=== PATIENT | male | born 1970 | race Caucasian/White ===

== ENCOUNTER 2023-05-02 17:18 | Emergency (ER) | payer OTHER, SELFPAY ==
[2023-05-02 17:25] VITALS: BP 119/68
--- NOTE | 2023-05-02 19:59 | ED.SKININJ ---
HPI-Injury
General
Chief Complaint: Bite
Source: patient
Exam Limitations: none
Time Seen by Provider: 05/02/23 18:38
Nursing documentation reviewed up to this point in time: agreed with
Travel History
Have you had any contact with someone who has COVID-19?: No
Do you have any symptoms of coronavirus? Fever > 100 degrees, chills, cough, shortness of breath, sore throat, loss of taste or smell, muscle aches, or headache?: No
History of Present Illness-Injury
Is this injury a work related problem?: No
Is pt an associate of [facility]?: No
Initial Injury comments:
Patient to ED for dog bite to right calf. States he was bit by a dog on leash. Incident occurred just [employer]. 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
Past History
Past History
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
ED Past Surgical History: Urological and Other
Social History
Tobacco: Non-smoker
Alcohol: None
Drug: None
Personal: Other
Living: other
Employment: Other
Family History
Family History: Other (Mother with breast and colon cancer, mother was Crohn's disease, father with hypertension)
Review of Systems
Review of Systems
Allergies reviewed?: Yes
All Other Systems: ROS reviewed and negative except as documented in HPI and ROS
Constitutional: Reports no symptoms
Musculoskeletal: Reports no symptoms
Skin: Reports other (Dog bite to right calf)
Neurological: Reports no symptoms
Psychiatric: Reports no symptoms
Skin Exam
Bite
Right Calf:
Type: animal
Skin has: puncture wounds
Surrounding area around bite has: no evidence of erythema
Distal skin color and temperature: normal-warm & good color
Normal distal neurovascular exam: Yes
Phy Exam
General Physical Exam
General Presentation: well appearing and no apparent distress
General age: appears stated age
General Skin: warm and dry
General Habitus: normal
General Mental: alert
Gastrointestinal Exam
Gastrointestinal Exam: normal bowel sounds, non tender, soft and no organomegaly
Musculoskeletal Exam
Musculoskeletal Exam: full ROM and neuro vasc intact
Skin Exam
Skin Exam: normal color, warm/dry and no rash
Psychiatric Exam
Psychiatric Exam: normal mood/affect
Course
Orders/Labs/Results
Orders:
Orders
05/02/23 19:55
Amoxicillin 875 mg/Clav 125 mg [Augmentin 875 mg/125 mg] 1 tablet PO NOW STA
Tetanus/Diphth/Acelpertussis [Adacel] 0.5 ml IM .ONCE ONE
Vital Signs
Initial and Last Documented VS:
Initial Vital Signs
Temp Pulse Resp BP Pulse Ox
98.0 F 74 16 119/68 98
05/02/23 17:25 05/02/23 17:25 05/02/23 17:25 05/02/23 17:25 05/02/23 17:25
Last Documented Vital Signs
Temp Pulse Resp BP Pulse Ox
98.0 F 74 16 119/68 98
05/02/23 17:25 05/02/23 17:25 05/02/23 17:25 05/02/23 17:25 05/02/23 17:25
*Critical Care Note
Total Time (30-74mins, 75-104mins- exclusive of procedures): Not Applicable
ED Attending Note
-
Portions of this chart may have been created with voice recognition software.� Occasional wrong word or��sound alike� substitutions may have occurred due to the inherent limitations of voice recognition software.
Discharge Plan
Departure
Patient Disposition: Home (Routine Discharge)
Date of Disposition: 05/02/23
Time of Disposition: 19:56
Patient with high blood pressure during this ER visit?: No
Condition: Good
Covid-19: Not Applicable
Discharge Problem:
Dog bite of lower leg
Instructions: Animal Bites (DC), Wound Care (DC)
Prescriptions:
New
amoxicillin-pot clavulanate 875-125 mg tablet
1 tab PO BID Qty: 14 0RF
No Action
insulin glargine [Lantus U-100 Insulin] 100 UNITS/1 ML solution
16 units SC HS
Patient Comments:
mom thinks this is correct-- the range is 12-16 stone
insulin lispro [Humalog U-100 Insulin] 100 UNIT/1 ML cartridge
0 unit SQ
Patient Comments:
dose various depending on what the patient is eatting.
aspirin 325 MG tablet,delayed release (DR/EC)
325 mg PO DAILY Qty: 0 0RF
Referrals:
Andres Bustamante MD [Family Provider] - Follow up in 2-3 days
Interventions
Interventions:
*ED COVID-19 Vaccine History Last Done: 05/02/23 17:25
[2023-05-02] MEDS: AUGMENTIN 875 MG/125 MG 1 TABLET PO (20:00)
[2023-05-02] MEDS: ADACEL 0.5 ML IM (20:02)
== END 2023-05-02 20:15 | disposition home or self-care (01) ==
LOC: EMR 17:18
PROVIDERS: EMERGENCY PHYSICIAN Emergency Medicine; FAMILY PHYSICIAN Family Medicine
DX: S81.851A Open bite, right lower leg, initial encounter (principal); W54.0XXA Bitten by dog, initial encounter; E11.9 Type 2 diabetes mellitus without complications; Z79.4 Long term (current) use of insulin; Z79.82 Long term (current) use of aspirin; Z85.47 Personal history of malignant neoplasm of testis
CPT/HCPCS: 99283; 90471; 90715

== ENCOUNTER → 2023-09-24 12:02 | Outpatient (REF) | payer OTHER, SELFPAY | LOC: RAD 12:02 | PROVIDERS: ATTENDING PHYSICIAN Family Medicine | DX: S93.402A Sprain of unspecified ligament of left ankle, initial encounter (principal) | CPT/HCPCS: 73600 ==

== ENCOUNTER → 2025-03-23 07:36 | Outpatient (REF) | payer OTHER, SELFPAY | LOC: RAD 07:36 | PROVIDERS: ATTENDING PHYSICIAN Family Medicine | DX: R10.31 Right lower quadrant pain (principal); Z85.47 Personal history of malignant neoplasm of testis | CPT/HCPCS: 74177; Q9967 ==